=== PATIENT | female | born 1955 | race Caucasian/White ===

== ENCOUNTER → 2019-08-11 13:06 | Outpatient (CLI) | payer OTHER, SELFPAY ==
--- NOTE | ~2019-08-11 | DEXA_ITS ---
Bone Density Report Name: Lucero Dimas Age: 63 Sex: Female Ethnicity: White Date of : 1955 Indication: postmenopausal osteoporosis; monitoring treatment; Referring Provider: Renetta Tabares Study: Bone densitometry was performed. Exam Date: August 11, 2019 Accession number: [id number] Bone Density: Region BMD T-score Z-score Classification AP Spine (L1-L4) 0.713 -3.0 -1.4 Osteoporosis Femoral Neck (Left) 0.572 -2.5 -1.0 Osteoporosis Total Hip (Left) 0.698 -2.0 -0.8 Osteopenia Femoral Neck (Right) 0.550 -2.7 -1.2 Osteoporosis Total Hip (Right) 0.728 -1.8 -0.6 Osteopenia Total Hip Mean 0.713 -1.9 -0.7 Osteopenia World Health Organization criteria for BMD impression classify patients as: Normal (T-score at or above -1.0), Osteopenia (T-score between -1.0 and -2.5), or Osteoporosis (T-score at or below -2.5). 10-year Fracture Risk: FRAX not reported because: Some T-score for Spine Total or Hip Total or Femoral Neck at or below -2.5 Treated for osteoporosis Previous Exams: Region Exam Age BMD T-score BMD Change BMD Change Date g/cm2 vs Baseline vs Previous AP Spine(L1-L4) 08/11/2019 63 0.713 -3.0 0.029* -0.018 08/12/2014 58 0.731 -2.9 0.047* 0.047* 05/18/2011 55 0.684 -3.3 Total Hip(Left) 08/11/2019 63 0.698 -2.0 0.041* -0.010 08/12/2014 58 0.709 -1.9 0.051* 0.051* 05/18/2011 55 0.658 -2.3 Total Hip(Right) 08/11/2019 63 0.728 -1.8 0.069* 0.010 08/12/2014 58 0.718 -1.8 0.058* 0.058* 05/18/2011 55 0.659 -2.3 *Denotes significance at 95% confidence level, LSC for AP Spine = 0.022 g/cm2, LSC for Total Hip = 0.027 g/cm2 Clinical Information Provided by Patient: Is being treated for osteoporosis Has used the following medications: Fosamax (i.e. alendronate), Vitamin D, ALENDRONATE OFF AND ON Patient maximum height was 63 Menopause Age: 51 Does not regularly consume dairy products Drinks caffeinated beverages Onset of menses at age 13 Number of children 2 Impression: The patient has osteoporosis, based on the Total Spine T-score. No significant bone loss was observed. Discussion: PATIENT UNDER TREATMENT WITH NO SIGNIFICANT BMD LOSS SINCE LAST EXAM. In an untreated patient, BMD typically declines with age. A lack of decline or gain is usually a sign that treatment is efficacious and fracture risk is re
--- NOTE | ~2019-08-11 | MM_ITS ---
EXAMINATION: MM screening anna BI w sophy HISTORY: Screening mammogram TECHNIQUE: Craniocaudal and mediolateral oblique 3-D tomosynthesis images were obtained and synthetic 2-D images were generated. CAD analysis was submitted and interpreted. COMPARISON: 09/17/2017, 09/14/2015, 08/12/2014 bilateral digital screening mammogram examinations BREAST PARENCHYMAL COMPOSITION : There is heterogeneously dense breast tissue, which may obscure small masses. FINDINGS: Occasional benign calcifications. There is no evidence of suspicious mass, calcification, o r architectural distortion to suggest malignancy in either breast. There has been no suspicious inter reji change. IMPRESSION: 1. No mammographic evidence of malignancy. 2. Recommend routine screening mammography in one year. BI-RADS Category 2: Benign finding(s). Reviewed, dictated and finalized at location A.
== END ==
PROVIDERS: PCP Family Medicine; Visit Provider Nurse Practitioner Family
DX: Z12.31 Encounter for screening mammogram for malignant neoplasm of breast (principal); M85.89 Other specified disorders of bone density and structure, multiple sites; M81.0 Age-related osteoporosis without current pathological fracture
CPT/HCPCS: 77063; 77067; 77080

== ENCOUNTER 2020-03-30 06:51 | Outpatient (NON) | payer OTHER, SELFPAY ==
[2020-03-31 00:29] LABS: SARS-CoV-2 RNA PCR Negative
== END 2020-03-30 06:52 ==
LOC: ANHCOVIDDT 07:11
PROVIDERS: PCP Family Medicine; Visit Provider Physician Assistant Medical
DX: Z20.828 Contact with and (suspected) exposure to other viral communicable diseases (principal)
CPT/HCPCS: 87635; C9803; U0003

== ENCOUNTER 2021-05-28 07:06 | Emergency (ER) | payer MEDICARE, SELFPAY ==
--- NOTE | ~2021-05-28 | CT_ITS ---
EXAMINATION: CT abdomen pelvis w con DATE: 05/28/2021 09:08 INDICATION: Left lower quadrant abdominal pain. Nausea and vomiting. TECHNIQUE: Computed tomography (CT) of the abdomen and pelvis was performed with 100 mL Omnipaque 350 intravenous contrast. Automated exposure control and iterative reconstruction technique were employe d. The dose-length product was 284.56 mGy-cm. COMPARISON: CT abdomen and pelvis 07/02/2013 FINDINGS: The visualized portions of the lung bases demonstrate mild atelectasis. A calcified right l gena nodules consistent with old granulomatous disease. No pleural effusion. The heart size is normal. No pericardial effusion. There is a small sliding hiatal hernia. There is an 8 mm cyst in the liver. The gallbladder is normal. Calcifications in the spleen are consistent with old granulomatous diseas e. The pancreas, adrenal glands, and right kidney are normal. There is a delayed left-sided contrast nephrogram. There is mild left hydronephrosis and hydroureter. There is a 3 mm stone in proximal left ureter. There is asymmetric edema around left kidney and proximal left ureter. There is an anastomos is in the rectum. The appendix is not visualized. There are no dilated loops of bowel. There are no p athologically enlarged lymph nodes. There is no free intraperitoneal fluid. There is mild lumbar spon dylosis. IMPRESSION: 1. 3 mm stone in proximal left ureter with mild left hydronephrosis and proximal hydroureter. 2. Small sliding hiatal hernia. Reviewed, dictated and finalized at location A. [facility] IMPRESSION: 1. 3 mm stone in proximal left ureter with mild left hydronephrosis and proxima l hydroureter. 2. Small sliding hiatal hernia.
[2021-05-28 07:09] VITALS: BP 115/56; PULSE 79; RESP 18; TEMP 36.7; O2SAT 100
[2021-05-28 07:44] LABS: Basophils Percent Auto 0.2 % (0.2-1.2); Eosinophils Absolute Auto 0.2 K/mm3 (0-0.3); Eosinophils Percent Auto 3.7 % (0-4.4); Hematocrit 42.1 % (37.0-47.0); Hemoglobin 14.5 g/dL (12.0-15.0); Immature Granulocyte Absolute 0.02 K/mm3 (0.00-0.031); Immature Granulocyte Percent A 0.4 % (0-0.5); Lymphocytes Absolute Auto 0.89 K/mm3 (0.9-3.2); Lymphocytes Percent Auto 16.4 % (18.3-44.2); Mean Corpuscular HGB Conc 34.4 g/dl (32-36); Mean Corpuscular Hemoglobin 30.6 pg (26-34); Mean Corpuscular Volume 88.8 fl (80-100); Mean Platelet Volume 10.4 fl (7.4-10.4); Monocytes Absolute Auto 0.4 K/mm3 (0.1-0.6); Monocytes Percent Auto 7.4 % (2.6-8.5); Neutrophils Absolute Auto 3.9 K/mm3 (1.3-6.7); Neutrophils Percent Auto 71.9 % (45.5-73.1); Platelet Count Result 177 k/mm3 (150-375); Red Blood Count 4.74 M/mm3 (4.2-5.4); Red Cell Distribution Width 12.2 % (11.5-14.5); White Blood Count 5.4 K/mm3 (4.5-10.0)
[2021-05-28 07:49] LABS: Add Urine Microscopic? YES; Appearance Urine Clear (Clear); Bacteria Urine Trace /hpf; Bilirubin Urine Negative (Negative); Blood Urine 2+ (Negative); Color Urine Yellow (Yellow); Glucose Urine UA Negative (Negative); Ketones Urine Trace mg/dL (Negative); Leukocyte Esterase Ur Negative LEU/UL (Negative); Mucus Urine Rare /lpf; Nitrate Urine Negative (Negative); Protein Urine Negative (Negative); RBC Urine 51-75 /hpf (0-2); Specific Grav Ur 1.015 (1.001-1.035); Squamous Epithelial Cell Urine Rare /hpf (Few); Urobilinogen Urine Negative mg/dL (<2.0)
[2021-05-28 07:54] LABS: Alanine Aminotransferase 16 U/L (4-35); Alkaline Phosphatase 71 U/L (38-126); Anion Gap 8 mmol/L (8-16); Aspartate Amino Transferase 25 U/L (14-36); Bilirubin,Total 0.5 mg/dL (0.2-1.3); Blood Urea Nitrogen 18 mg/dL (7-17); Calcium 9.4 mg/dL (8.4-10.2); Carbon Dioxide 26 mmol/L (22-30); Chloride 102 mmol/L (98-107); Estimated Glomerular Filt Rate > 60; Glucose 159 mg/dL (65-110); Lipase 87 U/L (23-300); Potassium 3.5 mmol/L (3.4-5.0); Sodium 136 mmol/L (137-145)
--- NOTE | 2021-05-28 08:01 | ED.ABDPAIN ---
HPI - Abdominal Pain General Chief Complaint: Abdominal Pain Stated Complaint: abdominal pain Time Seen by Provider: 05/28/21 07:30 Source: patient and RN notes reviewed Mode of arrival: ambulatory Limitations: no limitations History of Present Illness HPI narrative: This is a 65 year old female who presents for evaluation of left lower abdominal pain. She reports she has been having intermittent dull pain for over year that has been located left lower abdomen. Her pain worsened this morning and it is now sharp. She has nausea but no vomiting, fever or diarrhea. She also denies hematuria or dysuria. She has not taken anything for pain. She has history of colon resection 20 years ago for a tumor. She rates pain 11/27. MD elicited complaint: abdominal pain Severity: severe Radiation: LLQ Migration to: no migration Exacerbating factors: nothing Relieving factors: nothing Related Data Allergies Allergy/AdvReac Type Severity Reaction Status Date / Time Sulfa (Sulfonamide Allergy Unknown Rash Verified 05/28/21 07:51 Antibiotics) epinephrine AdvReac Mild Palpitation Verified 05/28/21 07:51 s Review of Systems Review of Systems: All systems reviewed & are unremarkable except as noted in HPI and below PMFSH Past Medical History Medical History (Updated 05/28/21 @ 10:04 by Tejal Arceo MD) Myocardial infarction Surgical History Surgical History (Updated 05/28/21 @ 08:23 by Tejal Arceo MD) History of colon resection Family History Family History (Updated 12/17/15 @ 23:19 by DOCTOR UNKNOWN) Mother Family history of hypothyroidism Father Family history of coronary artery disease Other Family history of malignant neoplasm of breast Social History Social History Smoking status: Never smoker Alcohol intake: never Exam Const: General: no acute distress and alert Orientation/consciousness: patient oriented x3 Eyes: EOM: EOMs intact bilaterally Chest: Chest palpation & inspection: normal inspection of the chest Resp: Effort & Inspection: normal respiratory effort and no retractions Auscultation: clear to auscultation bilaterally Cardio: Rate: regular rate Rhythm: regular rhythm Heart sounds: no murmurs GI: GI Palp: Yes Soft to palpation, Yes Tenderness to palpation present (GI) (LLQ), No Guarding due to palpation present (GI) and No Rigid due to palpation Auscultation: normal bowel sounds Skin: General skin exam: normal color Rashes: no rashes Neuro: General: patient oriented x3, moves all extremities and CN's II-XI intact bilaterally Psych: Mental Status: mental status grossly normal Affect: normal affect Course Reevaluation(s) Reevaluation #1: I reviewed with patient Ct findings of kidney stone as cause of her pain. I discussed discharge plan and treatment. I also discussed when to return to ER. Date: 05/28/21 Time: 10:02 Vital Signs Vital signs: Vital Signs Temperature 98.0 F 05/28/21 07:09 Pulse Rate 79 05/28/21 07:09 Respiratory Rate 18 05/28/21 07:09 Blood Pressure 115/56 L 05/28/21 07:09 Pulse Oximetry 100 05/28/21 07:09 Temperature 98.0 F 05/28/21 07:09 Pulse Rate 79 05/28/21 07:09 Respiratory Rate 18 05/28/21 07:09 Blood Pressure 115/56 L 05/28/21 07:09 Pulse Oximetry 100 05/28/21 07:09 MDM - Abdominal Pain Lab Data Attestation: I reviewed the patient's lab results. Result diagrams: 05/28/21 07:35 05/28/21 07:35 Labs: Lab Results 05/28/21 05/28/21 05/28/21 Range/Units 07:35 07:35 07:35 WBC 5.4 (4.5-10.0) K/mm3 RBC 4.74 (4.2-5.4) M/mm3 Hgb 14.5 (12.0-15.0) g/dL Hct 42.1 (37.0-47.0) % MCV 88.8 (80-100) fl MCH 30.6 (26-34) pg MCHC 34.4 (32-36) g/dl RDW 12.2 (11.5-14.5) % Plt Count 177 (150-375) k/mm3 MPV 10.4 (7.4-10.4) fl Immature Gran % (Auto) 0.4 (0-0.5) % Neut % (Auto) 71.9 (45.5-73.1) % Lymph %
[2021-05-28] MEDS: LACTATED RINGERS 1,000 ML 999 ML IV CONT (08:15)
[2021-05-28] MEDS: ONDANSETRON INJ 4 MG/2 ML VIAL IV PUSH (08:15)
[2021-05-28] MEDS: MORPHINE SULFATE (*CRX) 4 MG/ML INJ IV PUSH (08:15)
[2021-05-28] MEDS: TAMSULOSIN HCL 0.4 MG CAPSULE PO (10:18)
== END 2021-05-28 10:28 | disposition home or self-care (01) ==
PROVIDERS: Emergency Provider General Practice; PCP Family Medicine
DX: N13.2 Hydronephrosis with renal and ureteral calculous obstruction (principal); I25.2 Old myocardial infarction; K44.9 Diaphragmatic hernia without obstruction or gangrene
CPT/HCPCS: 36415; 51701; 74177; 80053; 81001; 81025; 83690; 85025; 96361; 96374; 96375; 99284; A9270; J2270; J2405; J7120; Q9967

== ENCOUNTER → 2021-11-28 08:10 | Outpatient (CLI) | payer MEDICARE, SELFPAY ==
--- NOTE | ~2021-11-28 | XR_ITS ---
XR hand RT 2V DATE: 11/28/2021 08:39 INDICATION: Pain right finger TECHNIQUE: AP and lateral views COMPARISON: None FINDINGS: There is osteopenia. There is polyarticular osteoarthritis including triscaphe, first carpometacarpal and multiple interph alangeal joints, particularly the distal interphalangeal joints No fracture or dislocation, periosteal reaction or bone destruction. No erosive change or chondrocalc inosis. IMPRESSION: Polyarticular osteoarthritis Reviewed, dictated and finalized at location A.
== END ==
PROVIDERS: PCP Family Medicine; Visit Provider Nurse Practitioner Family
DX: M79.644 Pain in right finger(s) (principal); M19.041 Primary osteoarthritis, right hand
CPT/HCPCS: 73120

== ENCOUNTER → 2022-02-23 13:16 | Outpatient (CLI) | payer MEDICARE, SELFPAY ==
--- NOTE | ~2022-02-23 | MM_ITS ---
EXAMINATION: MM screening anna BI w sophy HISTORY: Screening mammogram, family history of breast cancer in her mother. TECHNIQUE: Craniocaudal and mediolateral oblique 3-D tomosynthesis images were obtained and synthetic 2-D images were generated. CAD analysis was submitted and interpreted. COMPARISON: 08/11/2019, 09/17/2017, 09/14/2015 BREAST PARENCHYMAL COMPOSITION: The breasts are heterogeneously dense, which may obscure small masses . FINDINGS: No suspicious mass, calcification, or architectural distortion are identified in either [place] ast to suggest malignancy. There has been no suspicious interval change. IMPRESSION: 1. No mammographic evidence of malignancy. 2. Recommend routine screening mammography in one year. BI-RADS Category 1: Negative Reviewed, dictated and finalized at location B.
--- NOTE | ~2022-02-23 | DEXA_ITS ---
Bone Density Report Name: RADHA PEACE Age: 66 Sex: Female Ethnicity: White Date of : 1955 Indication: postmenopausal osteoporosis; height loss; Referring Provider: Nisha Ware Study: Bone densitometry was performed. Exam Date: February 23, 2022 Accession number: [id number] Bone Density: Region BMD T-score Z-score Classification AP Spine (L1-L4) 0.675 -3.4 -1.5 Osteoporosis Femoral Neck (Left) 0.536 -2.8 -1.2 Osteoporosis Total Hip (Left) 0.694 -2.0 -0.7 Osteopenia Femoral Neck (Right) 0.523 -2.9 -1.4 Osteoporosis Total Hip (Right) 0.719 -1.8 -0.5 Osteopenia Total Hip Mean 0.707 -1.9 -0.6 Osteopenia World Health Organization criteria for BMD impression classify patients as: Normal (T-score at or above -1.0), Osteopenia (T-score between -1.0 and -2.5), or Osteoporosis (T-score at or below -2.5). 10-year Fracture Risk: FRAX not reported because: Some T-score for Spine Total or Hip Total or Femoral Neck at or below -2.5 Previous Exams: Region Exam Age BMD T-score BMD Change BMD Change Date g/cm2 vs Baseline vs Previous AP Spine(L1-L4) 02/23/2022 66 0.675 -3.4 -0.010 -0.039* 08/11/2019 63 0.713 -3.0 0.029* -0.018 08/12/2014 58 0.731 -2.9 0.047* 0.047* 05/18/2011 55 0.684 -3.3 Total Hip(Left) 02/23/2022 66 0.694 -2.0 0.036* -0.005 08/11/2019 63 0.698 -2.0 0.041* -0.010 08/12/2014 58 0.709 -1.9 0.051* 0.051* 05/18/2011 55 0.658 -2.3 Total Hip(Right) 02/23/2022 66 0.719 -1.8 0.060* -0.009 08/11/2019 63 0.728 -1.8 0.069* 0.010 08/12/2014 58 0.718 -1.8 0.058* 0.058* 05/18/2011 55 0.659 -2.3 *Denotes significance at 95% confidence level, LSC for AP Spine = 0.022 g/cm2, LSC for Total Hip = 0.027 g/cm2 Clinical Information Provided by Patient: Patient maximum height was 63.5 Menopause Age: 51 No regular weight bearing exercise Onset of menses at age 13 Number of children 2 Impression: The patient has osteoporosis, based on the Total Spine T-score. The BMD for the AP Spine(L1-L4) decreased, changing by -0.039 since the last DXA exam. Discussion: INCREASED RISK OF FRACTURE. BONE DENSITY IS UNDESIRABLY LOW AT ONE OR MORE SKELETAL SITES, CONSISTENT WITH POSTMENOPAUSAL OSTEOPOROSIS. This patient's lowest T-score meets the [facility]
== END ==
PROVIDERS: PCP Nurse Anesthetist, Certified Registered; Visit Provider Nurse Practitioner Family
DX: Z12.31 Encounter for screening mammogram for malignant neoplasm of breast (principal); Z78.0 Asymptomatic menopausal state; M85.89 Other specified disorders of bone density and structure, multiple sites; M81.0 Age-related osteoporosis without current pathological fracture
CPT/HCPCS: 77063; 77067; 77080

== ENCOUNTER 2022-05-12 14:09 | Emergency (ER) | payer MEDICARE, SELFPAY ==
[2022-05-12 14:30] VITALS: BP 112/64; PULSE 93; RESP 18; TEMP 36.8; O2SAT 98
--- NOTE | 2022-05-12 14:42 | ED.FEMALEGU ---
HPI - Female Genitourinary General Chief complaint: Urogenital-Female Stated complaint: uti complaint Source: patient and RN notes reviewed Mode of arrival: ambulatory Limitations: no limitations History of Present Illness HPI Narrative: 66-year-old female presenting for concern for UTI. She endorses since last night she feels she needs to push the urine out, and has suprapubic pressure, urine is cloudy with a foul odor. She denies frequency, hematuria, abdominal pain, flank pain, fevers or chills. She denies recurrent UTIs. She has not taken anything for symptoms. She denies significant water intake. Related Data Allergies Allergy/AdvReac Type Severity Reaction Status Date / Time Sulfa (Sulfonamide Allergy Unknown Rash Verified 05/12/22 14:33 Antibiotics) epinephrine AdvReac Mild Palpitation Verified 05/12/22 14:33 s Review of Systems Review of Systems: CONSTITUTIONAL: Denies body aches, fever, chills, or sweats. CARDIOVASCULAR: Denies chest pain, palpitations, or edema. RESPIRATORY: Denies cough or dyspnea. GASTROINTESTINAL: Denies abdominal pain, nausea, vomiting, or diarrhea. GENITOURINARY: Reports dysuria, denies frequency, urgency, hematuria, flank pain SKIN: Denies rash, itching, or wounds. MUSCULOSKELETAL: Denies back pain or myalgia. [facility] Past Medical History Medical History BMI 22.0-22.9, adult Calcification of spleen Elevated glucose Lung granuloma Myocardial infarction Surgical History Surgical History History of colon resection Family History Family History Mother Family history of hypothyroidism Breast cancer Father Family history of coronary artery disease Heart disease Sibling Heart disease Other Family history of malignant neoplasm of breast Social History Social History Smoking status: Never smoker Second hand tobacco smoke exposure: No Alcohol intake: never Substance use: never Substance use type: does not use 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 Please see nursing chart for further information. There is no relevant family history pertinent to the presenting complaint Exam Narrative: GENERAL: Well-appearing and in no acute distress. HEAD: Normocephalic EYES: EOMI. . ENT: Mucous membranes pink and moist. NECK: Normal AROM. Supple. CHEST: No respiratory distress. Clear to auscultation. HEART: Regular rate and rhythm. ABDOMEN: Soft, nontender, nondistended, normal active bowel sounds. No CVA tenderness SKIN: Warm, dry, no rash. NEURO: No focal deficits. Alert and oriented x3. Gait steady. PSYCH: Normal affect. No signs of depression or anxiety. Course Course Emergency Course: Patient is aware of diagnosis, understands and agrees to treatment plan. Anticipatory guidance given. Patient agrees to follow-up as directed and is aware of reasons to seek care at the emergency department. Portions of this record may have been created with voice recognition software Level of Care: Express Care Visit Vital Signs Vital signs: Vital Signs Temperature 98.3 F 05/12/22 14:30 Pulse Rate 93 05/12/22 14:30 Respiratory Rate 18 05/12/22 14:30 Blood Pressure 112/64 05/12/22 14:30 Pulse Oximetry 98 05/12/22 14:30 Oxygen Delivery Room Air 05/12/22 14:30 Temperature 98.3 F 05/12/22 14:30 Pulse Rate 93 05/12/22 14:30 Respiratory Rate 18 05/12/22 14:30 Blood Pressure 112/64 05/12/22 14:30 Pulse Oximetry 98 05/12/22 14:30 Oxygen Delivery Room Air 05/12/22 14:30
== END 2022-05-12 15:02 | disposition home or self-care (01) ==
PROVIDERS: Emergency Provider Nurse Practitioner Family; PCP Family Medicine
DX: N39.0 Urinary tract infection, site not specified (principal); I25.2 Old myocardial infarction
CPT/HCPCS: 81003; 87077; 87086; 87186; 99213; G0463

== ENCOUNTER 2022-11-16 11:56 | Outpatient (CLI) | payer MEDICARE, SELFPAY ==
[2022-11-16 13:03] LABS: Basophils Percent Auto 0.2 % (0.2-1.2); Eosinophils Absolute Auto 0.1 K/mm3 (0-0.3); Eosinophils Percent Auto 2.3 % (0-4.4); Hematocrit 44.7 % (37.0-47.0); Immature Granulocyte Absolute 0.01 K/mm3 (0.00-0.031); Immature Granulocyte Percent A 0.2 % (0-0.5); Lymphocytes Absolute Auto 0.88 K/mm3 (0.9-3.2); Lymphocytes Percent Auto 18.2 % (18.3-44.2); Mean Corpuscular HGB Conc 33.6 g/dl (32-36); Mean Corpuscular Hemoglobin 30.1 pg (26-34); Mean Corpuscular Volume 89.6 fl (80-100); Mean Platelet Volume 10.7 fl (7.4-10.4); Monocytes Absolute Auto 0.6 K/mm3 (0.1-0.6); Monocytes Percent Auto 12.8 % (2.6-8.5); Neutrophils Absolute Auto 3.2 K/mm3 (1.3-6.7); Neutrophils Percent Auto 66.3 % (45.5-73.1); Platelet Count Result 191 k/mm3 (150-375); Red Blood Count 4.99 M/mm3 (4.2-5.4); White Blood Count 4.8 K/mm3 (4.5-10.0)
[2022-11-16 13:12] LABS: Alanine Aminotransferase 21 U/L (6-35); Albumin Level 4.3 g/dL (3.5-5.1); Alkaline Phosphatase 50 U/L (38-126); Anion Gap 4 mmol/L (8-16); Aspartate Amino Transferase 31 U/L (14-36); Bilirubin,Total 0.5 mg/dL (0.2-1.3); Blood Urea Nitrogen 17 mg/dL (7-17); Calcium 8.8 mg/dL (8.4-10.2); Carbon Dioxide 35 mmol/L (22-30); Chloride 100 mmol/L (98-107); Estimated Glomerular Filt Rate > 60; Glucose 88 mg/dL (65-110); Potassium 3.7 mmol/L (3.4-5.0); Sodium 139 mmol/L (137-145)
== END 2022-11-16 11:57 | disposition home or self-care (01) ==
PROVIDERS: PCP Family Medicine; Visit Provider Nurse Practitioner Family
DX: R50.9 Fever, unspecified (principal)
CPT/HCPCS: 36415; 80053; 85025

== ENCOUNTER 2022-11-17 08:30 | Emergency (ER) | payer MEDICARE, SELFPAY ==
[2022-11-17 08:38] VITALS: BP 110/62; PULSE 81; RESP 16; TEMP 36.9; O2SAT 98
[2022-11-17 08:39] VITALS: BP 110/62; PULSE 81; RESP 16; TEMP 36.9; O2SAT 98
--- NOTE | 2022-11-17 08:49 | ED.URI ---
HPI - URI/Sore Throat General Chief Complaint: Upper Respiratory Infection Stated Complaint: Congestion,Cough Time Seen by Provider: 11/17/22 08:50 Source: patient, family, RN notes reviewed and old records reviewed Mode of arrival: ambulatory Limitations: no limitations History of Present Illness HPI Narrative: 67 year old female who presents to [facility] care with complaints of cough and chest congestion for the past 5 days with low-grade fevers, 99.6F noted this morning. Patient reports that she has had cough intermittently for the past month. Patient states last night she did feel she was some what short of breath, no tachypnea SaO2 98% on room air respirations even nonlabored. Patient reports she has had history of bronchitis in the past had pneumonia. Patient has taken cough drops aspirin for her symptoms MD elicited complaint: fever (low grade), cough and other (chest congestion) Pertinent past history: pneumonia and other (Bronchitis) Onset (ago): day(s) (5) Able to tolerate fluids by mouth: Yes Treatments prior to arrival: other (cough drops and aspirin) Related Data Allergies Allergy/AdvReac Type Severity Reaction Status Date / Time Sulfa (Sulfonamide Allergy Unknown Rash Verified 11/17/22 08:38 Antibiotics) epinephrine AdvReac Mild Palpitation Verified 11/17/22 08:38 s Review of Systems Review of Systems: CONSTITUTIONAL: Report malaise,no chills, sweats, low grade fever. EYES: Denies visual changes, redness, or discharge. ENT: Reports rhinorrhea, congestion, no sinus pain, otalgia or acute sore throat reports hoarseness. CARDIOVASCULAR: Denies chest pain, palpitations, or edema. RESPIRATORY: Reports cough.? episode of dyspnea last night GASTROINTESTINAL: Denies abdominal pain, nausea, vomiting, diarrhea SKIN: Denies rash or itching. MUSCULOSKELETAL: Denies myalgia. NEUROLOGIC: Denies headache. 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 Myocardial infarction Surgical History Surgical History History of colon resection Family History Family History Mother Family history of hypothyroidism Breast cancer Father Family history of coronary artery disease Heart disease Sibling Heart disease Other Family history of malignant neoplasm of breast Social History Social History Smoking status: Never smoker Second hand tobacco smoke exposure: No Alcohol intake: never Substance use: never Substance use type: does not use Lack of Transportation: No Lack of Food: Never True Current Housing: I Have Housing Concerned About Future Housing: No Difficulty Paying Gas/Electric Bills: No Difficulty Paying for Meds: No Currently Unemployed: No Education: Bachelor's Degree Difficulty w/ Childcare or Family Care: No Living arrangements: with family Occupation/Education: retired 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 There is no relevant family history pertinent to the presenting complaint Exam Narrative: GENERAL: Well-appearing, well-nourished, and in no acute distress. HEAD: Normocephalic EYES: PERRLA, conjunctivae clear ENT: Nares clear, turbinates edematous and erythematous, clear discharge. Mucous membranes moist. TM pearly ashley with dull light reflex bilaterally; no tragal tenderness. Oropharynx erythematous without lesions. Tonsils not enlarged and without exudate, no drooling, no hoarsenes
== END 2022-11-17 09:16 | disposition home or self-care (01) ==
PROVIDERS: Emergency Provider Registered Nurse; PCP Family Medicine
DX: J06.9 Acute upper respiratory infection, unspecified (principal); I25.2 Old myocardial infarction; Z79.82 Long term (current) use of aspirin
CPT/HCPCS: 99213; G0463

== ENCOUNTER 2024-06-13 13:57 | Outpatient (CLI) | payer MEDICARE, SELFPAY ==
--- NOTE | ~2024-06-13 | MM_ITS ---
EXAMINATION: MM screening anna BI w sophy HISTORY: Screening mammogram, family history of breast cancer in her mother. TECHNIQUE: Craniocaudal and mediolateral oblique 3-D tomosynthesis images were obtained and synthetic 2-D images were generated. CAD analysis was submitted and interpreted. COMPARISON: 02/23/2010, 08/11/2019 BREAST PARENCHYMAL COMPOSITION:Dense: The breasts are heterogeneously dense, which may obscure small masses. FINDINGS: No suspicious mass, calcification, or architectural distortion are identified in either [place] ast to suggest malignancy. There has been no suspicious interval change. IMPRESSION: No mammographic evidence of malignancy. Recommend routine screening mammography in one year. BI-RADS Category 1: Negative Reviewed, dictated and finalized at location . 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
== END 2024-06-13 13:58 | disposition home or self-care (01) ==
LOC: MICIMG 13:59
PROVIDERS: PCP Family Medicine; Visit Provider Family Medicine
DX: Z12.31 Encounter for screening mammogram for malignant neoplasm of breast (principal)
CPT/HCPCS: 77063; 77067

== ENCOUNTER 2025-03-12 14:31 | Outpatient (CLI) | payer MEDICARE, SELFPAY ==
--- NOTE | ~2025-03-12 | US_ITS ---
EXAMINATION: US carotid duplex BI DATE: 03/12/2025 15:31 INDICATION: Achalasia TECHNIQUE: Grayscale, color Doppler, and pulsed Doppler images of the cervical carotid arteries were obtained. The degree of vessel stenosis is placed in one of the following categories: normal, <50%, 50-69%, >=70% but less than near- occlusion, near-occlusion, or total occlusion. Note that percent stenosis relative to normal distal artery lumen diameter is indirectly measured from velocity measurements as described by Axel, et al. Radiology 2003; 229:340-346. Notes: Normal: Peak systolic velocity <125 centimeters/sec and no plaque <50%. Peak systolic velocity <125 (EDV <40; ICA/CCA PSV ratio <2.0; used these factors only a tandem lesions or low cardiac output or contralateral disease) 50-69 %: PSV 125-230 (EDV 40-100; ratio 2-4) >= 70% but less than near occlusion: PSV greater than 230 (EDV > 100; ratio> 4.0) Near Occlusion: PSV that is variable; markedly narrowed lumen Occlusion: Absent flow on color/spectral Doppler and no lumen on ashley scale. COMPARISON: None. FINDINGS: RIGHT: The right common carotid artery (CCA) peak systolic velocity (PSV) is 103 cm/s. The right internal carotid artery (ICA) PSV is 125 cm/s. The right ICA end- diastolic velocity (EDV) is 47 cm/s. The right ICA/CCA PSV ratio is 1.2. The external carotid artery (ECA) PSV is 145 cm/s. There is antegrade flow in the right vertebral artery. LEFT: The left CCA PSV is 91 cm/s. The left ICA PSV is 109 cm/s. The left ICA EDV is 33 cm/s. The left ICA/CCA PSV ratio is 1.2. The ECA PSV is 98 cm/s. There is antegrade flow in the left vertebral artery. IMPRESSION: 1. Less than 50% stenosis in the right internal carotid artery by sonographic criteria. 2. Less than 50% stenosis in the left internal carotid artery by sonographic criteria. Reviewed, dictated and finalized at location O. IMPRESSION: 1. Less than 50% stenosis in the right internal carotid artery by sonographic aden rodrigues. 2. Less than 50% stenosis in the left internal carotid artery by sonographic ralph lipscomb.
== END 2025-03-12 14:32 | disposition home or self-care (01) ==
PROVIDERS: PCP Family Medicine; Visit Provider Physician Assistant Medical
DX: I65.23 Occlusion and stenosis of bilateral carotid arteries (principal)
CPT/HCPCS: 93880

== ENCOUNTER 2025-04-09 13:04 | Outpatient (CLI) | payer MEDICARE, SELFPAY ==
--- NOTE | ~2025-04-09 | DEXA_ITS ---
Bone Density Report Name: RADHA PEACE Age: 69 Sex: Female Ethnicity: White Date of : 1955 Indication: postmenopausal osteoporosis; monitoring treatment; Referring Provider: Coleen Myers Study: Bone densitometry was performed. Exam Date: April 09, 2025 Accession number: [id number] Bone Density: Region BMD T-score Z-score Classification AP Spine(L1-L4) 0.692 -3.2 -1.2 Osteoporosis Femoral Neck (Left) 0.553 -2.7 -0.9 Osteoporosis Total Hip (Left) 0.696 -2.0 -0.5 Osteopenia Femoral Neck (Right) 0.509 -3.1 -1.3 Osteoporosis Total Hip (Right) 0.697 -2.0 -0.5 Osteopenia Total Hip Mean 0.696 -2.0 -0.5 Osteopenia World Health Organization criteria for BMD impression classify patients as: Normal (T-score at or above -1.0), Osteopenia (T-score between -1.0 and -2.5), or Osteoporosis (T-score at or below -2.5). 10-year Fracture Risk: FRAX not reported because: Some T-score for Spine Total or Hip Total or Femoral Neck at or below -2.5 Treated for osteoporosis Previous Exams: -- Region Exam Age BMD T-score BMD Change BMD Change Date g/cm2 vs Baseline vs Previous -- AP Spine (L1-L4) 04/09/2025 69 0.692 -3.2 1.1% 2.6% 02/23/2022 66 0.675 -3.4 -1.4% -5.4%* 08/11/2019 63 0.713 -3.0 4.2%* -2.5% 08/12/2014 58 0.731 -2.9 6.9%* 6.9%* 05/18/2011 55 0.684 -3.3 Total Hip(Left) 04/09/2025 69 0.696 -2.0 5.8%* 0.4% 02/23/2022 66 0.694 -2.0 5.4%* -0.7% 08/11/2019 63 0.698 -2.0 6.2%* -1.5% 08/12/2014 58 0.709 -1.9 7.7%* 7.7%* 05/18/2011 55 0.658 -2.3 Total Hip(Right) 04/09/2025 69 0.697 -2.0 5.7%* -3.1% 02/23/2022 66 0.719 -1.8 9.0%* -1.3% 08/11/2019 63 0.728 -1.8 10.4%* 1.4% 08/12/2014 58 0.718 -1.8 8.9%* 8.9%* 05/18/2011 55 0.659 -2.3 -- *Denotes significance at 95% confidence level, LSC for AP Spine = 0.022 g/cm2, LSC for Total Hip = 0.027 g/cm2 Clinical Information Provided by Patient: Is being treated for osteoporosis Has used the following medications: Fosamax (i.e. alendronate), Vitamin D Patient maximum height was 64 Menopause Age: 51 No regular weight bearing exercise Does not regularly consume dairy products Onset of menses at age 13 Number of children 2 Impression: The patient has osteoporosis, based on the Total Spine T-score. No significant bone loss was observed. Discussion: PATIENT UNDER TREATMENT WITH NO SIGNIFICANT BMD LOSS SINCE LAST EXAM. In an untreated patient, BMD typically declines with age. A lack of decline or gain is usually a sign that treatment is efficacious and fracture risk is reduced. It is important to ask patients whether they are taking their medications and to encourage continued and appropriate compliance with their osteoporosis therapies to reduce fracture risk. It is also important to review their risk factors and encourage appropriate calcium and vitamin D intakes, exercise, fall prevention and other lifestyle measures. Follow-Up: Consider a repeat BMD and Vertebral Fracture Assessment (VFA) exam in 2 years or sooner if medically necessary, to reassess this patient's status. Reported by: MARLI on 04/09/2025 2:00:00 PM. Reviewed, dictated and finalized at location A.
--- NOTE | ~2025-04-09 | MR_ITS ---
EXAMINATION: MRI brain with and without contrast: DATE: 04/09/2025. INDICATION: 69-year-old female with visual disturbance and blacking out spells. TECHNIQUE: Axial, coronal and sagittal images of the brain were obtained including diffusion sequence, T2*gradient sequence, FLAIR images and postcontrast images after 12 mL MultiHance IV.. COMPARISON: Carotid Doppler study dated 03/12/2025 FINDINGS: No focal areas of restricted diffusion. No evidence for intracranial bleed or extra-axial collections. No evidence of ventriculomegaly or midline shift. No MRI evidence of chronic ischemia or demyelinating lesions on FLAIR images. Major vascular structures of the [place] are patent. No abnormal enhancement on postcontrast study. Pituitary gland is normal in appearance. Paranasal sinuses, mastoids and middle ear cavities do not show acute findings. IMPRESSION: 1. 1. No evidence of acute ischemia chronic ischemia or demyelinating lesions. 2. No intracranial space-occupying lesions or abnormal enhancement. No evidence of ventriculomegaly. Reviewed, dictated and finalized at location T. [facility]
== END 2025-04-09 13:05 | disposition home or self-care (01) ==
PROVIDERS: PCP Family Medicine; Visit Provider Physician Assistant Medical
DX: M81.0 Age-related osteoporosis without current pathological fracture (principal); M85.852 Other specified disorders of bone density and structure, left thigh; M85.851 Other specified disorders of bone density and structure, right thigh; Z78.0 Asymptomatic menopausal state; R56.9 Unspecified convulsions
CPT/HCPCS: 70553; 77080; A9577